=== PATIENT | female | born 1995 | race Asian ===

== ENCOUNTER 2024-03-09 21:18 | Emergency (ER) | payer MEDICAID, OTHER ==
[~2024-03-09] VITALS: Ht 152.4 cm; Wt 60.5 kg
[2024-03-09] MEDS ORDERED: PRED20TA2 PO (22:54)
[2024-03-09] MEDS ORDERED: DIPH25CA66 PO (22:54)
--- NOTE | 2024-03-09 22:54 | ED.PDOC ---
HPI Allergic reaction HPI Comments 28 year old female presents to ER with complaints of allergic reaction x 1 day. Patient with no known allergies states she has been experiencing an itchy red rash to abdomen and bilateral arms x 1 day. Notes she recently started taking Bactrim and Tessalon Perles for a UTI and cough 3 days ago and believes she is h aving an allergic reaction to these medications. She reports 8/10 frontal headache pain x 1 day, denying any other pain. Patient presents to ER ambulatory on arrival, with steady gait, in no distress with vitals stable. Denies fever, n/v, sob, chest pain, difficulty swallowing, abdominal pain, changes in urination/bm or any further symptoms/complaints Chief Complaint: Allergic Reaction Time Seen by MD: 22:18 Primary Care Provider: CHIP Vaca Notes: Nurses Notes, Medications, Allergies Allergies: Coded Allergies: NO KNOWN ALLERGIES (Unverified , 03/09/24) Home Meds Active Scripts Cephalexin Monohydrate (Cephalexin) 500 Mg Cap, 1 CAP PO BID for 7 Days, #14 CAP 0 Refills Prov:MALAIKA LOFTON 03/09/24 Prednisone (Prednisone) 20 Mg Tab, 20 MG PO BID for 5 Days, #10 TAB 0 Refills Prov:MALAIKA LOFTON 03/09/24 Diphenhydramine Hcl (Benadryl Allergy) 25 Mg Cap, 2 CAP PO Q6HPRN, #30 CAP 0 Refills Prov:MALAIKA LOFTON 03/09/24 Information Source: Patient Mode of Arrival: Ambulatory Past Medical History PAST MEDICAL HISTORY: Denies Surgical History: Denies all surgeries Family History Family History: Unknown Social History Smoker: Non-Smoker Alcohol: Denies ETOH Use Drugs: Denies Drug Use Lives In: Home Constitutional: denies: chills, diaphoresis, fatigue, fever, malaise, sweats, weakness, others EENTM: denies: blurred vision, double vision, ear bleeding, ear discharge, ear drainage, ear pain, ear ringing, eye pain, eye redness, hearing loss, mouth pain, mouth swelling, nasal discharge, nose bleeding, nose congestion, nose pain, photophobia, tearing, throat pain, throat swelling, voice changes, others Respiratory: reports: others (As stated in HPI) Cardiovascular: denies: chest pain, dizzy spells, diaphoresis, Dyspnea on exertion, edema, irregular heart beat, left arm pain, lightheadedness, palpitations, PND, syncope, others Gastrointestinal: denies: abdomen distended, abdominal pain, blood streaked bowels, constipated, diarrhea, dysphagia, difficulty swallowing, hematemesis, melena, nausea, poor appetite, poor fluid intake, rectal bleeding, rectal pain, vomiting, others Genitourinary: reports: others (As stated in HPI) Neurological: denies: dizziness, fainting, headache, left sided numbness, left sided weakness, numbness, paresthesia, pre-existing deficit, right sided numbness, right sided weakness, seizure, speech problems, tingling, tremors, weakness, others Musculoskeletal: denies: back pain, gout, joint pain, joint swelling, muscle pain, muscle stiffness, neck pain, others Integumetry: reports: others (As stated in HPI) Allergic/Immunocompromised: reports: others (As stated in HPI) Hematologic/Lymphatic: denies: anemia, blood clots, easy bleeding, easy b ruising, swollen glands, others Endocrine: denies: excessive hunger, excessive sweating, excessive thirst, excessive urination, flushing, intolerance to cold, intolerance to heat, unexplained weight gain, unexplained weight loss, others Psychiatric: denies: anxiety, bipolar disorder, depression, hopeless, panic disorder, schizophrenia, sleepless, suicidal, others Physical Exam General Appearance: No Apparent Distress HEENT: Normal ENT Inspection, PERRL/EOMI, Pharynx Normal, TMs Normal Neck: Full Range of Motion, Non-Tender, Normal Respiratory: Chest Non-Tender, Lungs Clear, No Accessory Muscle Use, No Respiratory Distress, Normal Breath Sounds Cardiovascular: No Murmur, No Gallop, Regular Rate/Rhythm Breast Exam: Deferred Gastrointestinal: No Organomegaly, Non Tender, No Pulsatile Mass, Normal Bowel Sounds, Soft Genitalia: Deferred Pelvic: Deferred Rectal: Deferred Extremities: Normal capillary refill, Normal range of motion Neurologic: Alert, scientist propagator II-XII nml as Tested, No Motor Deficits, Normal Affect, Normal Mood, No Sensory Deficits Cerebellar Function: Normal Reflexes: Normal Skin: Dry, Warm, Other (Mild urticaria noted to lower abdomen and to bilateral arms. No further skin changes noted) Peripheral Pulses: 2+ Radial (R), 2+ Radial (L), 2+ Brachial (R), 2+ Brachial (L) Lymphatic: No Adenopathy Was a procedure done? Was a procedure done?: No Sedation Sedation?: No Differential diagnosis (all) Differential Diagnosis: Anaphylaxis, Angioedema, Hypotension X-Ray, Labs, Meds, VS Vital Signs Date Time Temp Pulse Resp B/P (MAP) Pulse Ox O2 Delivery O2 Flow Rate FiO2 03/09/24 22:08 98.4 85 18 108/71 (83) 99 03/09/24 22:08 99 Room Air* 0 21 Solu-Medrol 125 mg IM ordered Benadryl 25 mg IM ordered Patient tolerating p.o. intake well and in no distress during ER visit/prior to discharge Advised to discontinue Bactrim and Tessalon Perles and take the following medications below as prescribed Advised to follow up with PCP and chemical worker in 1-2 days Patient verbalized understanding and agreeable with current plan of care Advised to return to ER immediately if symptoms worsen Time of 1ST Reevaluation: 22:24 Reevaluation 1ST: N/A Patient Education/Counseling: Diagnosis, Treatment, Prognosis, Need For Follow Up Family Education/Counseling: No Family Present Departure 1 Departure Time of Disposition: 22:52 Impression: Primary Impression: Allergic reaction Qualified Codes: T78.40XA - Allergy, unspecified, initial encounter Additional Impression: Hx: UTI (urinary tract infection) Disposition: 01 HOME / SELF CARE / HOMELESS Condition: Stable e-Prescriptions Cephalexin Monohydrate (Cephalexin) 500 Mg Cap 1 CAP PO BID for 7 Days, #14 CAP 0 Refills Prov: MALAIKA LOFTON 03/09/24 Prednisone (Prednisone) 20 Mg Tab 20 MG PO BID for 5 Days, #10 TAB 0 Refills Prov: MALAIKA LOFTON 03/09/24 Diphenhydramine Hcl (Benadryl Allergy) 25 Mg Cap 2 CAP PO Q6HPRN, #30 CAP 0 Refills Prov: MALAIKA LOFTON 03/09/24 Discharged With: Friend Critical Care Note Critical Care Time?: No Stability Stability form required: No Heart Score Heart Score: Heart Score Response (Comments) Value History N/A 0 EKG N/A 0 Age N/A 0 Risk Factors N/A 0 Troponin N/A 0 Total 0 MALAIKA LOFTON Mar 09, 2024 22:54
[2024-03-09] MEDS ORDERED: CEPH500C PO (22:56)
[2024-03-10] MEDS: diphenhdrAMINE HCL 50 MG/1 ML VL IM ONE (00:17)
[2024-03-10] MEDS: methylPREDNISolone SOD SUCC 125 MG/2 ML VL IM ONE (00:18)
[2024-03-10 00:52] VITALS: BP 124/78; PULSE 86; RESP 16; TEMP 98.6; O2SAT 99
== END 2024-03-10 01:11 | disposition home or self-care (01) ==
LOC: ER 21:18
DX: T78.40XA Allergy, unspecified, initial encounter (principal); Z87.440 Personal history of urinary (tract) infections; Z79.52 Long term (current) use of systemic steroids; Z79.899 Other long term (current) drug therapy; X58.XXXA Exposure to other specified factors, initial encounter
CPT/HCPCS: 96372; 99284; J1200; J2919